=== PATIENT | female | born 1985 | race Caucasian/White ===

== ENCOUNTER 2017-05-22 23:23 | Emergency (ER) | payer MEDICAID ==
[2017-05-23 03:46] LABS: URINE BLOOD (Dip) POC Negative (NEGATIVE); URINE GLUCOSE (Dip) POC Negative (NEGATIVE); URINE KETONES (Dip) POC Trace (NEGATIVE); URINE LEUKOCYTE EST (Dip) POC Negative (NEGATIVE); URINE NITRITE (Dip) POC Negative (NEGATIVE); URINE TOTAL PROTEIN POC Trace (NEGATIVE)
== END 2017-05-23 04:24 | disposition home or self-care (01) ==
LOC: FTE 23:23
DX: B37.3 Candidiasis of vulva and vagina (principal); Z85.3 Personal history of malignant neoplasm of breast
CPT/HCPCS: 81003; 81025; 99283

== ENCOUNTER 2018-01-26 10:17 | Emergency (ER) | payer BC, MEDICAID ==
[2018-01-26] MEDS: LIDOCAINE/MYLANTA 40 ML BTL PO (11:32)
[2018-01-26] MEDS: BELLADONNA/PHENOBARBITAL TAB PO (11:33)
[2018-01-26] MEDS: PROCHLORPERAZINE 10 MG INJ IV (11:39)
[2018-01-26] MEDS: HYDROmorphONE 1 MG/ML SYG IV (11:39)
[2018-01-26] MEDS: FAMOTIDINE 20 MG INJ IV (11:40)
[2018-01-26] MEDS: ONDANSETRON 4 MG INJ IV (11:40)
[2018-01-26 11:55] LABS: ADD MAN DIFF? NO
[2018-01-26 11:59] LABS: WHITE BLOOD COUNT 3.7 10^3/ul (4.8-10.8)
[2018-01-26 11:59] LABS: BASOPHILS % 0.3 % (0.0-2.0); EOSINOPHILS % 0.8 % (0.0-7.0); HEMATOCRIT 31.2 % (37.0-47.0); LYMPHOCYTES # 0.6 10^3/ul (0.8-2.9); LYMPHOCYTES % 17.3 % (15.0-51.0); MEAN CORPUSCULAR HEMOGLOBIN 33.6 pg (29.0-33.0); MEAN CORPUSCULAR HGB CONC 35.3 g/dl (32.0-37.0); MEAN CORPUSCULAR VOLUME 95.4 fl (82.0-101.0); MEAN PLATELET VOLUME 10.1 fl (7.4-10.4); MONOCYTE # 0.4 10^3/ul (0.3-0.9); MONOCYTES % 9.6 % (0.0-11.0); NEUTROPHIL # 2.6 10^3/ul (1.6-7.5); NEUTROPHILS % 71.7 % (39.0-77.0); PLATELET COUNT 205 10^3/UL (140-415); RED BLOOD COUNT 3.27 10^6/ul (4.20-5.40); RED CELL DISTRIBUTION WIDTH 12.5 % (11.5-14.5)
[2018-01-26 12:08] LABS: ALANINE AMINOTRANSFERASE 39 IU/L (13-69); ALBUMIN 4.4 g/dl (3.3-4.9); ALBUMIN/GLOBULIN RATIO 1.62; ALKALINE PHOSPHATASE 83 IU/L (42-121); ANION GAP 9 (5-13); ASPARTATE AMINO TRANSFERASE 40 IU/L (15-46); BILIRUBIN,INDIRECT 0.6 mg/dl (0-1.1); BILIRUBIN,TOTAL 0.6 mg/dl (0.2-1.3); BLOOD UREA NITROGEN 10 mg/dl (7-20); CALCIUM 8.9 mg/dl (8.4-10.2); CARBON DIOXIDE 24 mmol/L (21-31); CHLORIDE 107 mmol/L (97-110); CREATININE 0.49 mg/dl (0.44-1.00); Estimated GFR > 60 mL/min (>60); GLUCOSE 86 mg/dl (70-220); POTASSIUM 3.8 mmol/L (3.5-5.1); SODIUM 140 mmol/L (135-144); TOTAL PROTEIN 7.1 g/dl (6.1-8.1)
== END 2018-01-26 13:34 | disposition home or self-care (01) ==
LOC: E/R 10:17
DX: G43.909 Migraine, unspecified, not intractable, without status migrainosus (principal); R40.2362 Coma scale, best motor response, obeys commands, at arrival to emergency department; R40.2142 Coma scale, eyes open, spontaneous, at arrival to emergency department; R10.13 Epigastric pain; C50.919 Malignant neoplasm of unspecified site of unspecified female breast
CPT/HCPCS: 36415; 80053; 85025; 96374; 96375; 99284-25

== ENCOUNTER 2018-04-27 00:09 | Emergency (ER) | payer BC ==
[2018-04-27] MEDS: SOD CHLORIDE 0.9% 1,000 ML IV (03:02)
[2018-04-27] MEDS: DIPHENHYDRAMINE 50 MG INJ IV (03:02)
[2018-04-27] MEDS: METOCLOPRAMIDE 10 MG INJ IV (03:02)
[2018-04-27 03:14] LABS: ADD UMIC YES; UR ASCORBIC ACID NEGATIVE (NEGATIVE); UR BILIRUBIN (Dip) NEGATIVE (NEGATIVE); UR BLOOD (Dip) 1+ mg/dL (NEGATIVE); UR CLARITY SLIGHTLY CLOUDY (CLEAR); UR COLOR YELLOW (YELLOW); UR GLUCOSE (Dip) NEGATIVE (NEGATIVE); UR KETONES (Dip) NEGATIVE (NEGATIVE); UR LEUKOCYTE ESTERASE (Dip) NEGATIVE Leu/ul (NEGATIVE); UR MUCUS FEW /HPF (NONE SEEN); UR NITRITE (Dip) NEGATIVE (NEGATIVE); UR RBC 0 /HPF (0-5); UR SPECIFIC GRAVITY (Dip) 1.027 (1.003-1.030); UR SQUAMOUS EPITHELIAL CELL FEW /HPF (FEW); UR TOTAL PROTEIN (Dip) NEGATIVE (NEGATIVE); UR UROBILINOGEN (Dip) NEGATIVE (NEGATIVE); UR WBC 3 /HPF (0-5)
[2018-04-27] MEDS: MECLIZINE 12.5 MG TAB PO (03:59)
== END 2018-04-27 04:34 | disposition home or self-care (01) ==
LOC: FTE 04:34
DX: G40.909 Epilepsy, unspecified, not intractable, without status epilepticus (principal); Z85.3 Personal history of malignant neoplasm of breast
CPT/HCPCS: 81001; 81025; 84703; 96361; 96374; 96375; 99284-25